=== PATIENT | female | born 1950 | race Caucasian/White ===

== ENCOUNTER 2021-03-25 13:41 | Outpatient (REF) | payer MEDICARE, OTHER, SELFPAY ==
--- NOTE | ~2021-03-25 | MM_ITS ---
EXAMINATION: BONE DENSITOMETRY CLINICAL INDICATION: Encounter for screening for osteoporosis. COMPARISON: Previous BD dated 12/07/2017 and baseline BD dated 11/02/2012. TECHNIQUE: Using a [employer] DXA System (software version: 13.1) manufactured by [employer], dual-energy x-ray absorptiometry was performed of the lumbar spine and left hip. The images are of good technical quality. Summary results are attached. FINDINGS: AP SPINE L1-L4: Current: BMD 1.176 g/cm2, Z-score 1.9, T-score 0.0, normal, 1.6% decrease from previous, 1.7% decrease from baseline (<5% change is not significant). Prior: BMD 1.195 g/cm2. Baseline: BMD 1.196 g/cm2. LEFT FEMUR, NECK: Current: BMD 0.725 g/cm2, Z-score -0.4, T-score -2.3, osteopenia. Prior: BMD 0.706 g/cm2. Baseline: BMD 0.779 g/cm2. LEFT FEMUR, TOTAL: Current: BMD 0.796 g/cm2, Z-score 0.0, T-score -1.7, osteopenia, 2.5% decrease from previous, 7.4% decrease from baseline (<5% change is not significant). Prior: BMD 0.816 g/cm2. Baseline: BMD 0.860 g/cm2. IDENTIFIED RISK FACTORS: Parental hip fracture. Height loss. Menopause. HISTORY OF FRACTURE: None listed. MEDICATIONS: Vitamin D. MM/XR DEXA axial skeleton IMPRESSION: 1. DIAGNOSIS: Osteopenia based on the lowest T-score value of -2.3 in the femoral neck applying World Health Organization criteria. 2. 10-YEAR FRACTURE RISK PREDICTION, FRAX: Major osteoporotic fracture (clinical spine, forearm, hip or shoulder) 19.4%. Hip fracture 6.5%. 3. Treatment Recommendations: NOF guidelines recommend consideration for treatment in postmenopausal women and men age 50 and older presenting with the following: -A hip or vertebral (clinical or morphometric) fracture. -T-score less than or equal to -2.5 at the femoral neck or spine after appropriate evaluation to exclude secondary causes. -Low bone mass at the hip or spine and a 10-year fracture probability by FRAX of greater than or equal to 3% for hip fracture or greater than or equal to 20% for major osteoporotic fracture based on the [place] adapted WHO algorithm. 4. Other Recommendations: All treatment decisions require clinical judgment and consideration of individual patient factors, including patient preferences, comorbidities, previous drug use, risk factors not captured in the FRAX model (e.g. frailty, falls, vitamin D deficiency, increased bone turnover, interval significant decline in bone density) and possible under or overestimation of fracture risk by FRAX. Additional medical evaluation for secondary cause of low bone mineral density may be appropriate. FUTURE SCAN RECOMMENDATION: People with diagnosed cases of osteoporosis or at high risk for fracture should have regular bone mineral density tests. For patients eligible for Medicare, routine testing is allowed once every 2 years. The testing frequency can be increased to one year for patients who have rapidly progressing disease, those who are receiving or discontinuing medical therapy to restore bone mass, or have additional risk factors.
--- NOTE | ~2021-03-25 | MM_ITS ---
EXAMINATION: MM SCREENING DIGITAL BREAST TOMOSYNTHESIS, BILATERAL CLINICAL INFORMATION: Screening. Asymptomatic. The lifetime risk of breast cancer based on the Tyrer-Cuzick Model is 5%. COMPARISON: Mammography: 09/23/2019 and prior exams dating back to 10/24/2009 TECHNIQUE: Digital breast tomosynthesis is performed in both the craniocaudal and mediolateral oblique views along with computer-aided detection (CAD). Synthesized 2D images are generated from the tomosynthesis. FINDINGS: There are scattered areas of fibroglandular density (ACR BI-RADS breast composition Category b). There are no significant masses, abnormal calcifications, or other abnormalities. Parenchymal pattern is similar to prior studies. No developing density. The axilla and skin contours are unremarkable. No significant changes from prior exams. MM/MM tomosynthesis screening BI IMPRESSION: No mammographic evidence of malignancy. ASSESSMENT: BI-RADS 1: Negative RECOMMENDATION: Routine annual mammography screening. This patient's information was entered into a reminder system with a target due date for their next mammogram.
== END 2021-03-25 13:42 | disposition home or self-care (01) ==
LOC: HO.MAMMO 13:41
PROVIDERS: Visit Provider Nurse Practitioner Adult Health
DX: Z12.31 Encounter for screening mammogram for malignant neoplasm of breast (principal); Z13.820 Encounter for screening for osteoporosis; N95.9 Unspecified menopausal and perimenopausal disorder; M85.80 Other specified disorders of bone density and structure, unspecified site; Z78.0 Asymptomatic menopausal state; Z79.899 Other long term (current) drug therapy
CPT/HCPCS: 77063; 77067; 77080

== ENCOUNTER 2022-03-28 09:18 | Outpatient (REF) | payer MEDICARE, OTHER, SELFPAY ==
--- NOTE | ~2022-03-28 | MM_ITS ---
EXAMINATION: MM SCREENING DIGITAL BREAST TOMOSYNTHESIS, BILATERAL CLINICAL INFORMATION: Screening. Asymptomatic. The lifetime risk of breast cancer based on the Tyrer-Cuzick Model is 7%. COMPARISON: Mammography: March 25, 2021 and studies dating back to December 13, 2013 TECHNIQUE: Digital breast tomosynthesis is performed in both the craniocaudal and mediolateral oblique views along with computer-aided detection (CAD). Synthesized 2D images are generated from the tomosynthesis. FINDINGS: There are scattered areas of fibroglandular density (ACR BI-RADS breast composition Category b). There are no significant masses, abnormal calcifications, or other abnormalities. MM/MM tomosynthesis screening BI IMPRESSION: There are no significant changes from prior study. ASSESSMENT: BI-RADS 1: Negative RECOMMENDATION: Routine annual mammography screening. This patient's information was entered into a reminder system with a target due date for their next mammogram.
== END 2022-03-28 09:19 | disposition home or self-care (01) ==
LOC: HO.MAMMO 09:18
PROVIDERS: Visit Provider Nurse Practitioner Primary Care
DX: Z12.31 Encounter for screening mammogram for malignant neoplasm of breast (principal)
CPT/HCPCS: 77063; 77067

== ENCOUNTER 2022-10-14 20:41 | Emergency (ER) | payer MEDICARE, OTHER, SELFPAY ==
[2022-10-14 20:44] VITALS: BP 127/88; PULSE 89; RESP 18; TEMP 36.8; O2SAT 98; BMI 20.3
--- NOTE | 2022-10-14 20:45 | ED.GENADULT ---
HPI - General Adult General Chief complaint: Syncope <TERRI Meehan - Last Filed: 10/14/22 20:53> Stated complaint: fall facial abrasions, flu like symptoms <TERRI Meehan - Last Filed: 10/14/22 20:53> Time Seen by Provider: 10/14/22 21:14 <TERRI Meehan - Last Filed: 10/14/22 20:53> Source: patient <Yasmany Taylor MD - Last Filed: 10/15/22 00:52> Mode of arrival: ambulatory <Yasmany Taylor MD - Last Filed: 10/15/22 00:52> Limitations: no limitations <Yasmany Taylor MD - Last Filed: 10/15/22 00:52> History of Present Illness HPI narrative: Patient with flu-like symptoms for last 3 days coughing nauseated feeling weak was sitting on the stool getting ready for dinner felt lightheaded and passed out was very nauseated before that vomited and had diarrhea when she wokeup vomited once and had watery diarrhea no chest pain or palpitation slight shortness of breath was saturating 98% on arrival no seizure activity noticed patient never had similar episodes in the past patient came with 2 laceration on left forehead and on left upper lip <Yasmany Taylor MD - Last Filed: 10/15/22 00:52> Related Data Home medications: Previous Rx's Medication Instructions Recorded codeine 10 mg-guaifenesin 100 mg/5 10 ml PO Q6H PRN cough #237 mL 10/15/22 mL oral liquid ondansetron 4 mg disintegrating 4 mg PO Q6-8H PRN nausea and 10/15/22 tablet vomiting #7 tabs <TERRI Meehan - Last Filed: 10/14/22 20:53> Allergies/adverse reactions: Allergies Allergy/AdvReac Type Severity Reaction Status Date / Time doxycycline Allergy Intermediate Dizziness Verified 10/14/22 20:45 <TERRI Meehan - Last Filed: 10/14/22 20:53> Review of Systems Review of Systems: Yes all other systems are reviewed and are negative <Yasmany Taylor MD - Last Filed: 10/15/22 00:52> [facility] Social History Social History: Social History Advance Directives: No Advance Directives Information Provided: No <TERRI Meehan - Last Filed: 10/14/22 20:53> Physical Exam ED Vital Signs: Vital Signs - 24 hr 10/14/22 20:44 10/14/22 21:41 10/14/22 21:41 Temperature 98.3 F Pulse Rate 89 101 H 77 Respiratory Rate 18 Blood Pressure 127/88 145/79 H 144/80 H Pulse Oximetry 98 Oxygen Delivery Method Room Air 10/14/22 21:41 10/14/22 22:09 Temperature 97.7 F Pulse Rate 100 82 Respiratory Rate Blood Pressure 151/83 H 137/83 Pulse Oximetry 99 Oxygen Delivery Method Room Air BMI result Body Mass Index 20.3 <TERRI Meehan - Last Filed: 10/14/22 20:53> Vital Signs - 24 hr 10/14/22 20:44 10/14/22 21:41 10/14/22 21:41 Temperature 98.3 F Pulse Rate 89 101 H 77 Respiratory Rate 18 Blood Pressure 127/88 145/79 H 144/80 H Pulse Oximetry 98 Oxygen Delivery Method Room Air 10/14/22 21:41 10/14/22 22:09 Temperature 97.7 F Pulse Rate 100 82 Respiratory Rate Blood Pressure 151/83 H 137/83 Pulse Oximetry 99 Oxygen Delivery Method Room Air BMI result Body Mass Index 20.3 <Yasmany Taylor MD - Last Filed: 10/15/22 00:52> Appearance: Alert. Oriented X3. No acute distress. Eyes: No pallor or icterus ENT: Pharynx normal. Oral Mucosa moist Neck: Normal inspection. Neck supple. CVS: Normal heart rate and rhythm. Pulses normal. Respiratory: No respiratory distress. Equal air entry bilateral, no wheezing/rales/rhonchi Abdomen: Soft and nontender. Bowel sounds are present, no mass palpable, no CVA tenderness Skin: Skin warm and dry. Normal skin color. Normal skin turgor. Extremities: No lower extremity edema. No calf tenderness Neuro: Oriented X 3. No motor deficit. No sensory deficit.No cerebellar signs , cranial nerves II-XII intact <Yasmany Taylor MD - Last Filed: 10/15/22 00:52> [facility] Face images: 1. 2.5 cm superficial laceration 2. 2.2 cm superficial laceration <TERRI Meehan - Last Filed: 10/14/22 20:53> 1. 2.5 cm superficial laceration 2. 2.2 cm superficial laceration <Yasmany Taylor MD - Last Filed: 10/15/22 00:52> Course Course Course Narrative: RME - 72 yo female with history of asthma, GERD who presents to the ER for evaluation of a syncopal event that occurred about 40 minutes ago while she was sitting on a stool in her kitchen. She has not been feeling well for the last 2-3 days with URI symptoms and low grade fevers. PCP instructed her to rest and drink plenty of fluids. She has had a decreased appetite the last 2 days. Today she was sitting on the stool in the kitchen, told her , I really don't feel good, and then her eyes rolled up into her head, she passed out and fell face first on the floor. reports she stopped breathing, he turned her head to the side and she started breathing again. Came to after minute, was disoriented and confused. She then vomited and had diarrhea. VSS on arrival and she appears well. Lip lac noted. Will check basic labs, viral swabs, EKG, orthostatics, CT head/face/neck. <TERRI Meehan - Last Filed: 10/14/22 20:53> Medications Administered Discontinued Medications Generic Name Dose Route Start Last Admin Trade Name Carolann PRN Reason Stop Dose Admin Diphtheria/Tetanus/Acell Pertussis 0.5 ml 10/14/22 20:50 10/14/22 21:39 Diphth,Pertus(Acell),Tet Adult 0.5 Ml Syringe IM 10/14/22 20:51 0.5 ml .ONCE ONE Administration Guaifenesin/Codeine Phosphate 10 ml 10/14/22 23:36 10/14/22 23:44 Guaifen/Codeine Sf 200/20/10ml 10 Ml Liquid PO 10/14/22 23:37 10 ml ONCE ONE Administration Sodium Chloride 1,000 mls @ 999 mls/hr 10/14/22 21:00 10/14/22 21:38 Ns IV 12/23/22 22:00 999 mls/hr .Q1H1M GREYSON Administration Ketorolac Tromethamine 30 mg 10/15/22 00:16 10/15/22 00:36 Ketorolac Tromethamine 30 Mg/Ml Vial IVPUSH 10/15/22 00:17 30 mg ONCE ONE Administration Ondansetron HCl 4 mg 10/14/22 23:28 10/14/22 23:40 Ondansetron Hcl 4 Mg/2 Ml Vial IVPUSH 10/14/22 23:29 4 mg ONCE ONE Administration <TERRI Meehan - Last Filed: 10/14/22 20:53> Medications Administered Discontinued Medications Generic Name Dose Route Start Last Admin Trade Name Freq PRN Reason Stop Dose Admin Diphtheria/Tetanus/Acell Pertussis 0.5 ml 10/14/22 20:50 10/14/22 21:39 Diphth,Pertus(Acell),Tet Adult 0.5 Ml Syringe IM 10/14/22 20:51 0.5 ml .ONCE ONE Administration Guaifenesin/Codeine Phosphate 10 ml 10/14/22 23:36 10/14/22 23:44 Guaifen/Codeine Sf 200/20/10ml 10 Ml Liquid PO 10/14/22 23:37 10 ml ONCE ONE Administration Sodium Chloride 1,000 mls @ 999 mls/hr 10/14/22 21:00 10/14/22 21:38 Ns IV 10/14/22 22:00 999 mls/hr .Q1H1M GREYSON Administration Ketorolac Tromethamine 30 mg 10/15/22 00:16 10/15/22 00:36 Ketorolac Tromethamine 30 Mg/Ml Vial IVPUSH 10/15/22 00:17 30 mg ONCE ONE Administration Ondansetron HCl 4 mg 10/14/22 23:28 10/14/22 23:40 Ondansetron Hcl 4 Mg/2 Ml Vial IVPUSH 10/14/22 23:29 4 mg ONCE ONE Administration <Yasmany Taylor MD - Last Filed: 10/15/22 00:52> Procedures Laceration Laceration 1: Site: face (Left forehead) <Yasmany Taylor MD - Last Filed: 10/15/22 00:52> Side (If applicable): left <Yasmany Taylor MD - Last Filed: 10/15/22 00:52> Size (cm): 2.5 <Yasmany Taylor MD - Last Filed: 10/15/22 00:52> Description: linear <Yasmany Taylor MD - Last Filed: 10/15/22 00:52> Depth: simple, single layer <Yasmany Taylor MD - Last Filed: 10/15/22 00:52> Local Anesthetic: lidocaine 1% <Yasmany Taylor MD - Last Filed: 10/15/22 00:52> Amount of anesthesia used (mL): 1 <Yasmany Taylor MD - Last Filed: 10/15/22 00:52> Skin layer closed with: nylon <Yasmany Taylor MD - Last Filed: 10/15/22 00:52> Size (cm): 6-0 <Yasmany Taylor MD - Last Filed: 10/15/22 00:52> Number of sutures: 5 <Yasmany Taylor MD - Last Filed: 10/15/22 00:52> Technique: simple, interrupted <Yasmany Taylor MD - Last Filed: 10/15/22 00:52> Subcutaneous layer closed with: other <Yasmany Taylor MD - Last Filed: 10/15/22 00:52> Laceration 2: Site: lip <Yasmany Taylor MD - Last Filed: 10/15/22 00:52> Side (If applicable): left <Yasmany Taylor MD - Last Filed: 10/15/22 00:52> Size (cm): 2.2 <Yasmany Taylor MD - Last Filed: 10/15/22 00:52> Description: linear <Yasmany Taylor MD - Last Filed: 10/15/22 00:52> Depth: simple, single layer <Yasmany Taylor MD - Last Filed: 10/15/22 00:52> Local Anesthetic: lidocaine 1% <Yasmany Taylor MD - Last Filed: 10/15/22 00:52> Amount of anesthesia used (mL): 1 <Yasmany Taylor MD - Last Filed: 10/15/22 00:52> Skin layer closed with: nylon <Yasmany Taylor MD - Last Filed: 10/15/22 00:52> Size (cm): 6-0 <Yasmany Taylor MD - Last Filed: 10/15/22 00:52> Number of sutures: 5 <Yasmany Taylor MD - Last Filed: 10/15/22 00:52> Technique: simple, interrupted <Yasmany Taylor MD - Last Filed: 10/15/22 00:52> Medical Decision Making Medical Decision Making [facility] Narrative: Patient with influenza a, with poor oral intake with vasovagal syncope episode workup is negative feeling much better after IV hydration chest x-ray negative for infiltrate normal orthostatics CT head negative will discharge patient home patient ambulated in the ER and had p.o. fluids <Yasmany Taylor MD - Last Filed: 10/15/22 00:52> Lab Data [facility] Lab Attestation statement: I reviewed the patient's lab results. <Yasmany Taylor MD - Last Filed: 10/15/22 00:52> Result Diagrams: : 10/14/22 21:33 10/14/22 21:33 <TERRI Meehan - Last Filed: 10/14/22 20:53> Labs: Lab Results 10/14/22 10/14/22 10/14/22 Range/Units 21:27 21:33 21:33 WBC 4.6 L (4.8-10.8) X10*3/uL RBC 4.08 L (4.20-5.50) X10*6/uL Hgb 13.0 (12.0-16.0) g/dl Hct 39.1 (37.0-47.0) % MCV 95.8 (80.0-98.0) fL MCH 31.9 (27.0-33.0) pg MCHC 33.2 (31.0-35.0) g/dl RDW 13.2 (11.0-16.0) % Plt Count 217 (160-400) X10*3/uL MPV 11.1 (9.4-12.3) fL Immature Gran % (Auto) 0.2 (0.0-0.4) % Neut % (Auto) 74.3 H (45-73) % Lymph % (Auto) 12.7 L (20-40) % [place] % (Auto) 12.4 H (2-11) % Eos % (Auto) 0.2 (0-4) % Baso % (Auto) 0.2 (0-2) % Lymph # (Auto) 0.6 L (1.2-4.9) X10*3/uL [place] # (Auto) 0.6 (0.1-1.2) X10*3/uL Eos # (Auto) 0.0 (0.0-0.4) X10*3/uL Baso # (Auto) 0.0 (0.0-0.2) X10*3/uL Abs Immat Gran (auto) 0.01 (0.00-0.03) X10*3/uL Absolute Neuts (auto) 3.4 (2.0-8.3) x10*3/uL Absolute Nucleated RBC 0.000 (0.0-0.012) X10*3/uL Nucleated RBC % (auto) 0.0 (0.0-0.2) /100WBC PT (10.0-13.1) SEC INR (0.9-1.1) APTT (26.0-36.4) SEC Sodium 136 (135-145) mmol/L Potassium 4.0 (3.3-5.1) mmol/L Chloride 99 (96-108) mmol/L Carbon Dioxide 27 (22-29) mmol/L Anion Gap 14 (12-20) BUN 15 (9-16) mg/dL Creatinine 0.79 (0.5-1.4) mg/dL Estim Creat Clear Calc 58.1 Estimated GFR > 60 Random Glucose 123 H (60-115) mg/dL Calcium 9.3 (8.4-10.2) mg/dL Magnesium 1.9 (1.6-2.6) mg/dL Total Bilirubin 0.3 (0.0-1.0) mg/dL Direct Bilirubin < 0.2 (0.0-0.5) mg/dL AST 34 H (5-31) U/L ALT 23 (0-31) U/L Alkaline Phosphatase 56 (39-117) U/L Troponin I High Sens (<3.5-17.0) ng/L Total Protein 7.6 (6.5-8.0) g/dL Albumin 4.6 (3.5-5.0) g/dL Urine Color Urine Appearance Urine pH (5.0-9.0) Ur Specific [place] (1.005-1.025) Urine Protein (Neg-Trace) mg/dL Urine Glucose (UA) (Negative) mg/dL Urine Ketones (Negative) mg/dL Urine Blood (Negative) Urine Nitrite (Negative) Ur Leukocyte Esterase (Negative) Urine RBC (0-2) /HPF Urine WBC (0-5) /HPF Ur Squamous Epith Cells (0-2) /HPF Urine Bacteria (None Seen) Hyaline Casts (0-2) /LPF Influenza Type A (PCR) POSITIVE A (Negative) Influenza Type B (PCR) NEGATIVE (Negative) RSV RNA Qual (PCR) NEGATIVE (Negative) SARS-CoV-2 RNA (RT-PCR) NEGATIVE (Negative) 10/14/22 10/14/22 10/14/22 Range/Units 21:33 21:33 23:05 WBC (4.8-10.8) X10*3/uL RBC (4.20-5.50) X10*6/uL Hgb (12.0-16.0) g/dl Hct (37.0-47.0) % MCV (80.0-98.0) fL MCH (27.0-33.0) pg MCHC (31.0-35.0) g/dl RDW (11.0-16.0) % Plt Count (160-400) X10*3/uL MPV (9.4-12.3) fL Immature Gran % (Auto) (0.0-0.4) % Neut % (Auto) (45-73) % Lymph % (Auto) (20-40) % [place] % (Auto) (2-11) % Eos % (Auto) (0-4) % Baso % (Auto) (0-2) % Lymph # (Auto) (1.2-4.9) X10*3/uL [place] # (Auto) (0.1-1.2) X10*3/uL Eos # (Auto) (0.0-0.4) X10*3/uL Baso # (Auto) (0.0-0.2) X10*3/uL Abs Immat Gran (auto) (0.00-0.03) X10*3/uL Absolute Neuts (auto) (2.0-8.3) x10*3/uL Absolute Nucleated RBC (0.0-0.012) X10*3/uL Nucleated RBC % (auto) (0.0-0.2) /100WBC PT 12.0 (10.0-13.1) SEC INR 1.0 (0.9-1.1) APTT 31.0 (26.0-36.4) SEC Sodium (135-145) mmol/L Potassium (3.3-5.1) mmol/L Chloride (96-108) mmol/L Carbon Dioxide (22-29) mmol/L Anion Gap (12-20) BUN (9-16) mg/dL Creatinine (0.5-1.4) mg/dL Estim Creat Clear Calc Estimated GFR Random Glucose (60-115) mg/dL Calcium (8.4-10.2) mg/dL Magnesium (1.6-2.6) mg/dL Total Bilirubin (0.0-1.0) mg/dL Direct Bilirubin (0.0-0.5) mg/dL AST (5-31) U/L ALT (0-31) U/L Alkaline Phosphatase (39-117) U/L Troponin I High Sens 5.4 (<3.5-17.0) ng/L Total Protein (6.5-8.0) g/dL Albumin (3.5-5.0) g/dL Urine Color Yellow Urine Appearance Clear Urine pH 6.0 (5.0-9.0) Ur Specific [place] 1.015 (1.005-1.025) Urine Protein Trace (Neg-Trace) mg/dL Urine Glucose (UA) Negative (Negative) mg/dL Urine Ketones 15 (Negative) mg/dL Urine Blood Trace H (Negative) Urine Nitrite Negative (Negative) Ur Leukocyte Esterase Trace H (Negative) Urine RBC 3-5 H (0-2) /HPF Urine WBC 0-5 (0-5) /HPF Ur Squamous Epith Cells 0-2 (0-2) /HPF Urine Bacteria None Seen (None Seen) Hyaline Casts 3-5 (0-2) /LPF Influenza Type A (PCR) (Negative) Influenza Type B (PCR) (Negative) RSV RNA Qual (PCR) (Negative) SARS-CoV-2 RNA (RT-PCR) (Negative) <TERRI Meehan - Last Filed: 10/14/22 20:53> Lab Results 10/14/22 10/14/22 10/14/22 Range/Units 21:27 21:33 21:33 WBC 4.6 L (4.8-10.8) X10*3/uL RBC 4.08 L (4.20-5.50) X10*6/uL Hgb 13.0 (12.0-16.0) g/dl Hct 39.1 (37.0-47.0) % MCV 95.8 (80.0-98.0) fL MCH 31.9 (27.0-33.0) pg MCHC 33.2 (31.0-35.0) g/dl RDW 13.2 (11.0-16.0) % Plt Count 217 (160-400) X10*3/uL MPV 11.1 (9.4-12.3) fL Immature Gran % (Auto) 0.2 (0.0-0.4) % Neut % (Auto) 74.3 H (45-73) % Lymph % (Auto) 12.7 L (20-40) % [place] % (Auto) 12.4 H (2-11) % Eos % (Auto) 0.2 (0-4) % Baso % (Auto) 0.2 (0-2) % Lymph # (Auto) 0.6 L (1.2-4.9) X10*3/uL [place] # (Auto) 0.6 (0.1-1.2) X10*3/uL Eos # (Auto) 0.0 (0.0-0.4) X10*3/uL Baso # (Auto) 0.0 (0.0-0.2) X10*3/uL Abs Immat Gran (auto) 0.01 (0.00-0.03) X10*3/uL Absolute Neuts (auto) 3.4 (2.0-8.3) x10*3/uL Absolute Nucleated RBC 0.000 (0.0-0.012) X10*3/uL Nucleated RBC % (auto) 0.0 (0.0-0.2) /100WBC PT (10.0-13.1) SEC INR (0.9-1.1) APTT (26.0-36.4) SEC Sodium 136 (135-145) mmol/L Potassium 4.0 (3.3-5.1) mmol/L Chloride 99 (96-108) mmol/L Carbon Dioxide 27 (22-29) mmol/L Anion Gap 14 (12-20) BUN 15 (9-16) mg/dL Creatinine 0.79 (0.5-1.4) mg/dL Estim Creat Clear Calc 58.1 Estimated GFR > 60 Random Glucose 123 H (60-115) mg/dL Calcium 9.3 (8.4-10.2) mg/dL Magnesium 1.9 (1.6-2.6) mg/dL Total Bilirubin 0.3 (0.0-1.0) mg/dL Direct Bilirubin < 0.2 (0.0-0.5) mg/dL AST 34 H (5-31) U/L ALT 23 (0-31) U/L Alkaline Phosphatase 56 (39-117) U/L Troponin I High Sens (<3.5-17.0) ng/L Total Protein 7.6 (6.5-8.0) g/dL Albumin 4.6 (3.5-5.0) g/dL Urine Color Urine Appearance Urine pH (5.0-9.0) Ur Specific [place] (1.005-1.025) Urine Protein (Neg-Trace) mg/dL Urine Glucose (UA) (Negative) mg/dL Urine Ketones (Negative) mg/dL Urine Blood (Negative) Urine Nitrite (Negative) Ur Leukocyte Esterase (Negative) Urine RBC (0-2) /HPF Urine WBC (0-5) /HPF Ur Squamous Epith Cells (0-2) /HPF Urine Bacteria (None Seen) Hyaline Casts (0-2) /LPF Influenza Type A (PCR) POSITIVE A (Negative) Influenza Type B (PCR) NEGATIVE (Negative) RSV RNA Qual (PCR) NEGATIVE (Negative) SARS-CoV-2 RNA (RT-PCR) NEGATIVE (Negative) 10/14/22 10/14/22 10/14/22 Range/Units 21:33 21:33 23:05 WBC (4.8-10.8) X10*3/uL RBC (4.20-5.50) X10*6/uL Hgb (12.0-16.0) g/dl Hct (37.0-47.0) % MCV (80.0-98.0) fL MCH (27.0-33.0) pg MCHC (31.0-35.0) g/dl RDW (11.0-16.0) % Plt Count (160-400) X10*3/uL MPV (9.4-12.3) fL Immature Gran % (Auto) (0.0-0.4) % Neut % (Auto) (45-73) % Lymph % (Auto) (20-40) % [place] % (Auto) (2-11) % Eos % (Auto) (0-4) % Baso % (Auto) (0-2) % Lymph # (Auto) (1.2-4.9) X10*3/uL [place] # (Auto) (0.1-1.2) X10*3/uL Eos # (Auto) (0.0-0.4) X10*3/uL Baso # (Auto) (0.0-0.2) X10*3/uL Abs Immat Gran (auto) (0.00-0.03) X10*3/uL Absolute Neuts (auto) (2.0-8.3) x10*3/uL Absolute Nucleated RBC (0.0-0.012) X10*3/uL Nucleated RBC % (auto) (0.0-0.2) /100WBC PT 12.0 (10.0-13.1) SEC INR 1.0 (0.9-1.1) APTT 31.0 (26.0-36.4) SEC Sodium (135-145) mmol/L Potassium (3.3-5.1) mmol/L Chloride (96-108) mmol/L Carbon Dioxide (22-29) mmol/L Anion Gap (12-20) BUN (9-16) mg/dL Creatinine (0.5-1.4) mg/dL Estim Creat Clear Calc Estimated GFR Random Glucose (60-115) mg/dL Calcium (8.4-10.2) mg/dL Magnesium (1.6-2.6) mg/dL Total Bilirubin (0.0-1.0) mg/dL Direct Bilirubin (0.0-0.5) mg/dL AST (5-31) U/L ALT (0-31) U/L Alkaline Phosphatase (39-117) U/L Troponin I High Sens 5.4 (<3.5-17.0) ng/L Total Protein (6.5-8.0) g/dL Albumin (3.5-5.0) g/dL Urine Color Yellow Urine Appearance Clear Urine pH 6.0 (5.0-9.0) Ur Specific [place] 1.015 (1.005-1.025) Urine Protein Trace (Neg-Trace) mg/dL Urine Glucose (UA) Negative (Negative) mg/dL Urine Ketones 15 (Negative) mg/dL Urine Blood Trace H (Negative) Urine Nitrite Negative (Negative) Ur Leukocyte Esterase Trace H (Negative) Urine RBC 3-5 H (0-2) /HPF Urine WBC 0-5 (0-5) /HPF Ur Squamous Epith Cells 0-2 (0-2) /HPF Urine Bacteria None Seen (None Seen) Hyaline Casts 3-5 (0-2) /LPF Influenza Type A (PCR) (Negative) Influenza Type B (PCR) (Negative) RSV RNA Qual (PCR) (Negative) SARS-CoV-2 RNA (RT-PCR) (Negative) <Yasmany Taylor MD - Last Filed: 10/15/22 00:52> Independent Interpretation I performed an independent interpretation of an: EKG <Yasmany Taylor MD - Last Filed: 10/15/22 00:52> Interpretation: Normal sinus rhythm heart rate 80 beats per minute normal interval normal axis no acute ST changes no ischemia impression normal EKG <Yasmany Taylor MD - Last Filed: 10/15/22 00:52> Discharge Plan Discharge Clinical Impression: Vasovagal syncope, Influenza A, Face lacerations <TERRI Meehan - Last Filed: 10/14/22 20:53> Patient Disposition: Home, Self-Care <TERRI Meehan - Last Filed: 10/14/22 20:53> Instructions: Laceration (ED), Influenza (ED), Near Syncope (ED) <TERRI Meehan - Last Filed: 10/14/22 20:53> Additional Instructions: Drink plenty of fluids Eat well, social distancing Medicine for nausea and cough Report to the ER if not better Suture removal in 7-10 days <TERRI Meehan - Last Filed: 10/14/22 20:53> Prescriptions: New ondansetron 4 mg tablet,disintegrating 4 mg PO Q6-8H PRN (Reason: nausea and vomiting) Qty: 7 0RF codeine-guaifenesin 10-100 mg/5 mL liquid 10 ml PO Q6H PRN (Reason: cough) Qty: 237 0RF <TERRI Meehan - Last Filed: 10/14/22 20:53>
--- NOTE | 2022-10-14 20:50 | ECG_ITS ---
Test Reason : FALL Blood Pressure : / mmHG Vent. Rate : 080 BPM Atrial Rate : 080 BPM P-R Int : 168 ms QRS Dur : 090 ms QT Int : 384 ms P-R-T Axes : 064 042 052 degrees QTc Int : 442 ms Normal sinus rhythm Normal ECG No previous ECGs available Referred By: Jaqueline Bentley Electronically Signed By:Jonny Dasilva
[2022-10-14 21:40] LABS: MANUAL DIFF FLAG NO
[2022-10-14 21:41] VITALS: BP 144/80; BP 145/79; BP 151/83; PULSE 100; PULSE 101; PULSE 77
[2022-10-14 21:42] LABS: Basophils Percent Auto 0.2 % (0-2); Eosinophils Percent Auto 0.2 % (0-4); Hematocrit 39.1 % (37.0-47.0); Imm Gran Abs Auto 0.01 X10*3/uL (0.00-0.03); Imm Gran Pct Auto 0.2 % (0.0-0.4); Lymphocytes Absolute Auto 0.6 X10*3/uL (1.2-4.9); Lymphocytes Percent Auto 12.7 % (20-40); Mean Corpuscular HGB Conc 33.2 g/dl (31.0-35.0); Mean Corpuscular Hemoglobin 31.9 pg (27.0-33.0); Mean Corpuscular Volume 95.8 fL (80.0-98.0); Mean Platelet Volume 11.1 fL (9.4-12.3); Monocytes Absolute Auto 0.6 X10*3/uL (0.1-1.2); Monocytes Percent Auto 12.4 % (2-11); Neutrophils Absolute Auto 3.4 x10*3/uL (2.0-8.3); Neutrophils Percent Auto 74.3 % (45-73); Platelet Count 217 X10*3/uL (160-400); Red Blood Count 4.08 X10*6/uL (4.20-5.50); Red Cell Distribution Width 13.2 % (11.0-16.0); White Blood Count 4.6 X10*3/uL (4.8-10.8)
[2022-10-14 21:57] LABS: Alanine Aminotransferase 23 U/L (0-31); Albumin Level 4.6 g/dL (3.5-5.0); Alkaline Phosphatase 56 U/L (39-117); Anion Gap 14 (12-20); Aspartate Amino Transferase 34 U/L (5-31); Bilirubin Direct < 0.2 mg/dL (0.0-0.5); Bilirubin Total 0.3 mg/dL (0.0-1.0); Blood Urea Nitrogen 15 mg/dL (9-16); Calcium 9.3 mg/dL (8.4-10.2); Carbon Dioxide 27 mmol/L (22-29); Chloride 99 mmol/L (96-108); Creatinine Clr Calc Pharmacy 58.1; Estimated Glomerular Filt Rate > 60; Glucose Random 123 mg/dL (60-115); Magnesium 1.9 mg/dL (1.6-2.6); Sodium 136 mmol/L (135-145); Total Protein 7.6 g/dL (6.5-8.0)
[2022-10-14 22:00] LABS: Troponin-I High Sensitivity 5.4 ng/L (<3.5-17.0)
[2022-10-14 22:09] VITALS: BP 137/83; PULSE 82; TEMP 36.5; O2SAT 99
[2022-10-14 22:20] LABS: Influenza A PCR POSITIVE (Negative); Influenza B PCR NEGATIVE (Negative); Resp Syncy Virus RNA Qual PCR NEGATIVE (Negative); SARS COV2 PCR INHOUSE NEGATIVE (Negative)
[2022-10-14 23:12] LABS: Appearance Urine Clear; Color Urine Yellow; Glucose Urine UA Negative (Negative); Leukocyte Esterase Urine Trace (Negative); Nitrite Urine Negative (Negative); Specific Gravity - Urine 1.015 (1.005-1.025); UMIC TRIGGER UACC YES; Urine Blood Trace (Negative); Urine Ketones 15 mg/dL (Negative); Urine Protein Trace mg/dL (Neg-Trace)
[2022-10-14 23:21] LABS: Bacteria Urine None Seen (None Seen); Squamous Epithelial Cell Urine 0-2 /HPF (0-2); WBC Urine 0-5 /HPF (0-5)
--- NOTE | 2022-10-15 00:48 | PC.NURSE ---
pt a&o, no sob or chest pain. reviewed discharge instruction with pt. pt verbalized understanding.
== END 2022-10-15 01:04 | disposition home or self-care (01) ==
PROVIDERS: Physician Assistant; Emergency Provider Internal Medicine; PCP Nurse Practitioner Primary Care
DX: S00.81XA Abrasion of other part of head, initial encounter (principal); J10.1 Influenza due to other identified influenza virus with other respiratory manifestations; R55 Syncope and collapse; R51.9 Headache, unspecified; M54.2 Cervicalgia; R05.9 Cough, unspecified; W01.0XXA Fall on same level from slipping, tripping and stumbling without subsequent striking against object, initial encounter; Y93.9 Activity, unspecified; Y92.9 Unspecified place or not applicable; Y99.9 Unspecified external cause status; Z20.822 Contact with and (suspected) exposure to COVID-19; Z79.899 Other long term (current) drug therapy; Z23 Encounter for immunization
CPT/HCPCS: 0241U; 12013; 36415; 70450; 70486; 71045; 72125; 80048; 80076; 81001; 83735; 84484; 85025; 85610; 85730; 90471; 90715; 93005; 96361; 96374; 96375; 99284; J1885; J2405

== ENCOUNTER 2022-10-16 11:17 | Observation (INO) | payer MEDICARE, OTHER, SELFPAY ==
[2022-10-16] VITALS (7 sets, daily range): BP systolic 133–153; BP diastolic 70–91; PULSE 62–74; RESP 12–20; TEMP 36.6–36.7; O2SAT 97–98; BMI 20.1
--- NOTE | 2022-10-16 11:55 | ED.GENADULT ---
HPI - General Adult General Chief complaint: General Medical Stated complaint: dizzy, vomiting Time Seen by Provider: 10/16/22 11:49 Source: patient Mode of arrival: ambulatory Limitations: no limitations History of Present Illness HPI narrative: 72-year-old female with a history of GERD, asthma presents with reports of episode of feeling lightheaded and dizzy around 08:00 this morning. Patient reports since Monday she has had flu-like symptoms. On Monday she was seen here in the emergency room after having a syncopal episode with vomiting and diarrhea associated. Patient had a CT scan of the head, facial bones, C-spine which were all negative. She was discharged home with diagnosis of influenza a and vasovagal syncope. Patient reports yesterday she overall was feeling better but still having some malaise and decreased intake. Today she got up around 08:00 sitting on her couch eating and drinking when she started to feel very lightheaded like she was going to pass out and diaphoretic. Patient reports episode of vomiting. She did not pass out completely. She denies any associated palpitations, shortness of breath or chest pain with these episode. It resolved after several minutes. Patient reports since then she has had no additional episodes. She denies any continued vomiting or diarrhea. She has been trying to drink more water but has had decreased oral intake. No abdominal pain. She has had a cough which is described as congested and wet with no associated shortness of breath, leg swelling or leg pain. She has had some intermittent chills and tactile temps but has not checked her temperature for several days. Patient reports episode on Monday felt different. Prior to that episode she had no preceding symptoms. She has no memory of the event. was concerned that after the episode she had some confusion for several minutes but this seemed to resolve. This episode patient felt quite symptomatic very lightheaded, diaphoretic and vomited. There was no loss of consciousness this time and no confusion or additional symptoms after the episode resolved. Related Data Home Medications Medication Instructions Recorded Confirmed albuterol sulfate 90 mcg/actuation 2 puff inhalation Q6H 10/16/22 10/16/22 aerosol inhaler estradiol 0.01% (0.1 mg/gram) 1 g vaginal 2XW 10/16/22 10/16/22 vaginal cream montelukast 10 mg tablet 1 tab PO DAILY 10/16/22 10/16/22 omeprazole 20 mg capsule,delayed 1 cap PO DAILY 10/16/22 10/16/22 release Previous Rx's Medication Instructions Recorded codeine 10 mg-guaifenesin 100 mg/5 10 ml PO Q6H PRN cough #237 mL 10/15/22 mL oral liquid Allergies Allergy/AdvReac Type Severity Reaction Status Date / Time doxycycline Allergy Intermediate Dizziness Verified 10/14/22 20:45 Review of Systems Review of Systems: Yes all other systems are reviewed and are negative Constitutional: Constitutional: Reports no additional constitutional complaints, Denies body ache(s), Reports chills, Reports fever(s), Denies headache(s), Reports malaise, Reports poor appetite and Denies weakness Eyes: Eyes: Reports no additional eye complaints and Denies change in vision ENT: Reports system reviewed and no additional complaints, except as documented, Reports dizziness, Denies headache(s), Denies nasal congestion, Denies nasal discharge and Denies neck pain Cardiovascular: Cardiovascular: Reports no additional cardiovascular complaints, Denies chest pain, Denies leg edema and Denies dyspnea Respiratory: Respiratory: Reports no additional respiratory complaints, Reports cough and Denies dyspnea Gastrointestinal: Gastrointestinal: Reports no additional gastrointestinal complaints, Denies abdominal pain, Denies diarrhea, Reports nausea and Reports vomiting Genitourinary: Genitourinary: Reports no additional female genitourinary complaints and Denies urinary incontinence Musculoskeletal: Musculoskeletal: Reports no additional musculoskeletal complaints, Denies back pain, Denies arthralgias, Denies joint swelling, Denies neck pain, Denies numbness and Denies tingling Integumentary/Breasts: Skin/Breast: Reports system reviewed and no additional complaints, except as docu and Denies rash Neurologic: Reports system reviewed and no additional complaints, except as documented, Reports dizziness, Denies headache(s), Denies numbness, Denies tingling and Denies weakness [facility] Past Medical History Attestation statement: The following information was validated with the patient. Source: old records reviewed and nursing notes reviewed Medical History (Updated 10/16/22 @ 15:51 by TERRI Bean) GERD (gastroesophageal reflux disease) Mild intermittent asthma Family History Family History (Updated 10/16/22 @ 15:50 by TERRI Bean) Mother Alzheimer disease Sister Alzheimer disease Father Atherosclerosis Social History Social History (Updated 10/16/22 @ 15:50 by TERRI Bean) Alcohol intake: current Alcohol intake frequency: 0-2 drinks per day Smoked in Last 30 Days: No Use of substances other than those prescribed or required for medical reasons: No Advance Directives: No Physical Exam ED Vital Signs: Vital Signs - 24 hr 10/16/22 11:22 10/16/22 12:46 10/16/22 12:48 Temperature 97.9 F Pulse Rate 62 67 63 Respiratory Rate 18 16 Blood Pressure 139/72 133/79 135/70 Pulse Oximetry 98 97 Oxygen Delivery Method Room Air Room Air 10/16/22 12:49 10/16/22 12:51 Temperature Pulse Rate 71 74 Respiratory Rate Blood Pressure 143/74 H 142/84 H Pulse Oximetry Oxygen Delivery Method BMI result Body Mass Index 20.1 Const General: cooperative, healthy appearing, comfortable and no acute distress Orientation/consciousness: patient oriented x3 Limitations: no limitations HENMT Head: Yes normal to inspection Head images: 1. Sutures present 2. Sutures present Ears: hearing grossly normal bilaterally and TM's normal bilaterally General nose exam: Normal external nose present Mouth: Normal oral and palatal mucosa present Throat: Yes posterior oropharynx normal, Yes tonsils normal and Yes uvula midline Eyes General: appearance normal, both eyes and all related structures Pupils: Equal, round and reactive pupils present Neck Neck: Yes normal visual inspection Chest Chest palpation & inspection: normal inspection of the chest Resp Effort & Inspection: normal respiratory effort Auscultation: clear to auscultation bilaterally Cardio Rate: regular rate Rhythm: regular rhythm Peripheral pulses: Peripheral pulses 2+ throughout GI Inspection: Yes normal to inspection Palpation (GI): Soft to palpation and nontender General: Yes no CVA tenderness Back/Spine/Pelvis Back: no CVA tenderness Thoracic/Lumbar Spine: thoracic and lumbar spine normal to inspection Skin General skin exam: no rashes or lesions noted Neuro General: patient oriented x3 Cranial nerves: Yes CN's II-XII intact bilaterally, Yes Equal, round and reactive pupils present, Yes Bilaterally intact EOM present, Yes Nystagmus not present and Yes Normal facial strength present Cognition (Neuro): normal cognition Gait exam (Neuro): Normal gait present Motor exam (neuro): 5/5 motor strength present throughout Sensory Exam: Normal double simultaneous stimulation for sensation Coordination: [id number] test normal Extrem General: Yes normal to inspection, Yes no pedal edema and Yes no calf tenderness Course Course Course Narrative: Negative orthos. Initial labs including troponin are negative. EKG shows no ischemic changes. Initial UA is contaminated. Will repeat urinalysis. Patient with syncope at rest from unknown cause. No previous history of same. Patient should be admitted for further workup and evaluation. Medications Administered Generic Name Dose Route Start Last Admin Trade Name Freq PRN Reason Stop Dose Admin Ibuprofen 600 mg 10/16/22 15:43 10/16/22 15:48 Ibuprofen 600 Mg Tablet PO 600 mg Q6H PRN Administration mild pain, fever Medical Decision Making Medical Decision Making MDM Narrative: 72-year-old female here with episode of dizziness with associated diaphoresis and vomiting which occurred while at rest described as feeling lightheaded like she was going to pass out at 08:00 this morning. Of note, patient currently flu positive and seen here Monday after a fall with diagnosis of vasovagal syncope after a episode occurred while at rest witnessed by the described as no preceding symptoms with sudden loss of consciousness with fall to the ground and period of confusion after. Normal neuro exam now Vitals are stable Will check labs, EKG, orthostatics, chest x-ray. Patient placed on registered nurse cardiac for observation while in the ER. Differential Diagnosis Differential Diagnoses: The differential diagnosis associated with the presentation includes Arrhythmia, orthostatic hypotension, dehydration, PE (no recent surgery, no recent travel, no clinical findings concerning for DVT, no hypoxia or tachypnea or tachycardia) Admission/Observation Consideration of admission/observation: Escalation of care including admission/observation considered 72 y F with syncope at rest from unknown source. Should be admitted for further w/u Consult Healthcare Provider Management of the patient was discussed with: Hospitalist Spoke to Dr Schilling (medicine service) who agrees with admission Lab Data MDM Lab Attestation statement: I reviewed the patient's lab results. Result Diagrams: 10/16/22 13:04 10/16/22 13:04 Labs: Lab Results 10/16/22 10/16/22 10/16/22 Range/Units 13:04 13:04 13:04 WBC 4.9 (4.8-10.8) X10*3/uL RBC 3.85 L (4.20-5.50) X10*6/uL Hgb 12.2 (12.0-16.0) g/dl Hct 37.3 (37.0-47.0) % MCV 96.9 (80.0-98.0) fL MCH 31.7 (27.0-33.0) pg MCHC 32.7 (31.0-35.0) g/dl RDW 13.0 (11.0-16.0) % Plt Count 221 (160-400) X10*3/uL MPV 11.4 (9.4-12.3) fL Immature Gran % (Auto) 0.4 (0.0-0.4) % Neut % (Auto) 75.7 H (45-73) % Lymph % (Auto) 13.0 L (20-40) % [place] % (Auto) 10.3 (2-11) % Eos % (Auto) 0.4 (0-4) % Baso % (Auto) 0.2 (0-2) % Lymph # (Auto) 0.6 L (1.2-4.9) X10*3/uL [place] # (Auto) 0.5 (0.1-1.2) X10*3/uL Eos # (Auto) 0.0 (0.0-0.4) X10*3/uL Baso # (Auto) 0.0 (0.0-0.2) X10*3/uL Abs Immat Gran (auto) 0.02 (0.00-0.03) X10*3/uL Absolute Neuts (auto) 3.7 (2.0-8.3) x10*3/uL Absolute Nucleated RBC 0.000 (0.0-0.012) X10*3/uL Nucleated RBC % (auto) 0.0 (0.0-0.2) /100WBC PT 11.9 (10.0-13.1) SEC INR 1.0 (0.9-1.1) Sodium 138 (135-145) mmol/L Potassium 4.3 (3.3-5.1) mmol/L Chloride 102 (96-108) mmol/L Carbon Dioxide 29 (22-29) mmol/L Anion Gap 11 L (12-20) BUN 16 (9-16) mg/dL Creatinine 0.75 (0.5-1.4) mg/dL Estim Creat Clear Calc 60.6 Estimated GFR > 60 Random Glucose 142 H (60-115) mg/dL Calcium 9.1 (8.4-10.2) mg/dL Magnesium 1.8 (1.6-2.6) mg/dL Total Bilirubin 0.3 (0.0-1.0) mg/dL Direct Bilirubin < 0.2 (0.0-0.5) mg/dL AST 31 (5-31) U/L ALT 22 (0-31) U/L Alkaline Phosphatase 52 (39-117) U/L Troponin I High Sens (<3.5-17.0) ng/L Total Protein 6.7 (6.5-8.0) g/dL Albumin 4.1 (3.5-5.0) g/dL Urine Color Urine Appearance Urine pH (5.0-9.0) Ur Specific [place] (1.005-1.025) Urine Protein (Neg-Trace) mg/dL Urine Glucose (UA) (Negative) mg/dL Urine Ketones (Negative) mg/dL Urine Blood (Negative) Urine Nitrite (Negative) Ur Leukocyte Esterase (Negative) Urine RBC (0-2) /HPF Urine WBC (0-5) /HPF Ur Squamous Epith Cells (0-2) /HPF Urine Bacteria (None Seen) Hyaline Casts (0-2) /LPF COVID-19 (CAROLYN) (Negative) COVID-19 Clin Com 10/16/22 10/16/22 10/16/22 Range/Units 13:04 13:14 14:26 WBC (4.8-10.8) X10*3/uL RBC (4.20-5.50) X10*6/uL Hgb (12.0-16.0) g/dl Hct (37.0-47.0) % MCV (80.0-98.0) fL MCH (27.0-33.0) pg MCHC (31.0-35.0) g/dl RDW (11.0-16.0) % Plt Count (160-400) X10*3/uL MPV (9.4-12.3) fL Immature Gran % (Auto) (0.0-0.4) % Neut % (Auto) (45-73) % Lymph % (Auto) (20-40) % [place] % (Auto) (2-11) % Eos % (Auto) (0-4) % Baso % (Auto) (0-2) % Lymph # (Auto) (1.2-4.9) X10*3/uL [place] # (Auto) (0.1-1.2) X10*3/uL Eos # (Auto) (0.0-0.4) X10*3/uL Baso # (Auto) (0.0-0.2) X10*3/uL Abs Immat Gran (auto) (0.00-0.03) X10*3/uL Absolute Neuts (auto) (2.0-8.3) x10*3/uL Absolute Nucleated RBC (0.0-0.012) X10*3/uL Nucleated RBC % (auto) (0.0-0.2) /100WBC PT (10.0-13.1) SEC INR (0.9-1.1) Sodium (135-145) mmol/L Potassium (3.3-5.1) mmol/L Chloride (96-108) mmol/L Carbon Dioxide (22-29) mmol/L Anion Gap (12-20) BUN (9-16) mg/dL Creatinine (0.5-1.4) mg/dL Estim Creat Clear Calc Estimated GFR Random Glucose (60-115) mg/dL Calcium (8.4-10.2) mg/dL Magnesium (1.6-2.6) mg/dL Total Bilirubin (0.0-1.0) mg/dL Direct Bilirubin (0.0-0.5) mg/dL AST (5-31) U/L ALT (0-31) U/L Alkaline Phosphatase (39-117) U/L Troponin I High Sens < 3.5 (<3.5-17.0) ng/L Total Protein (6.5-8.0) g/dL Albumin (3.5-5.0) g/dL Urine Color Dark Yellow Urine Appearance Cloudy Urine pH 5.5 (5.0-9.0) Ur Specific [place] 1.025 (1.005-1.025) Urine Protein 30 (1+) H (Neg-Trace) mg/dL Urine Glucose (UA) Negative (Negative) mg/dL Urine Ketones Trace (Negative) mg/dL Urine Blood Trace H (Negative) Urine Nitrite Negative (Negative) Ur Leukocyte Esterase Moderate (2+) H (Negative) Urine RBC 3-5 H (0-2) /HPF Urine WBC 21-50 H (0-5) /HPF Ur Squamous Epith Cells >20 (0-2) /HPF Urine Bacteria 1+ (None Seen) Hyaline Casts 0-2 (0-2) /LPF COVID-19 (CAROLYN) Negative (Negative) COVID-19 Clin Com See Note 10/16/22 Range/Units 14:29 WBC (4.8-10.8) X10*3/uL RBC (4.20-5.50) X10*6/uL Hgb (12.0-16.0) g/dl Hct (37.0-47.0) % MCV (80.0-98.0) fL MCH (27.0-33.0) pg MCHC (31.0-35.0) g/dl RDW (11.0-16.0) % Plt Count (160-400) X10*3/uL MPV (9.4-12.3) fL Immature Gran % (Auto) (0.0-0.4) % Neut % (Auto) (45-73) % Lymph % (Auto) (20-40) % [place] % (Auto) (2-11) % Eos % (Auto) (0-4) % Baso % (Auto) (0-2) % Lymph # (Auto) (1.2-4.9) X10*3/uL [place] # (Auto) (0.1-1.2) X10*3/uL Eos # (Auto) (0.0-0.4) X10*3/uL Baso # (Auto) (0.0-0.2) X10*3/uL Abs Immat Gran (auto) (0.00-0.03) X10*3/uL Absolute Neuts (auto) (2.0-8.3) x10*3/uL Absolute Nucleated RBC (0.0-0.012) X10*3/uL Nucleated RBC % (auto) (0.0-0.2) /100WBC PT (10.0-13.1) SEC INR (0.9-1.1) Sodium (135-145) mmol/L Potassium (3.3-5.1) mmol/L Chloride (96-108) mmol/L Carbon Dioxide (22-29) mmol/L Anion Gap (12-20) BUN (9-16) mg/dL Creatinine (0.5-1.4) mg/dL Estim Creat Clear Calc Estimated GFR Random Glucose (60-115) mg/dL Calcium (8.4-10.2) mg/dL Magnesium (1.6-2.6) mg/dL Total Bilirubin (0.0-1.0) mg/dL Direct Bilirubin (0.0-0.5) mg/dL AST (5-31) U/L ALT (0-31) U/L Alkaline Phosphatase (39-117) U/L Troponin I High Sens (<3.5-17.0) ng/L Total Protein (6.5-8.0) g/dL Albumin (3.5-5.0) g/dL Urine Color Yellow Urine Appearance Clear Urine pH 5.5 (5.0-9.0) Ur Specific [place] 1.015 (1.005-1.025) Urine Protein Negative (Neg-Trace) mg/dL Urine Glucose (UA) Negative (Negative) mg/dL Urine Ketones Negative (Negative) mg/dL Urine Blood Negative (Negative) Urine Nitrite Negative (Negative) Ur Leukocyte Esterase Trace H (Negative) Urine RBC 0-2 (0-2) /HPF Urine WBC 0-5 (0-5) /HPF Ur Squamous Epith Cells 0-2 (0-2) /HPF Urine Bacteria None Seen (None Seen) Hyaline Casts 0-2 (0-2) /LPF COVID-19 (CAROLYN) (Negative) COVID-19 Clin Com Independent Interpretation I performed an independent interpretation of an: EKG Interpretation: Normal sinus rhythm with a rate of 61, normal DE, normal QRS, normal QT Radiology Impression Discussion of test interpretation with radiology: I have reviewed the radiologist's reading. Radiologist Impression: I reviewed the radiologist reading and independently interpret the x-ray as normal FINDINGS: No significant abnormality is noted involving the heart, lungs, mediastinum, bony thorax or soft tissues. No significant change since 10/14/2022. XR/XR chest 2V IMPRESSION: Unremarkable examination. Independent Historian Clinical information obtained from an independent historian. History obtained from or confirmed by: Spouse Discharge Plan Discharge Clinical Impression: Syncope Patient Disposition: Admitted As Inpatient
--- NOTE | 2022-10-16 12:19 | ECG_ITS ---
Test Reason : Syncope Blood Pressure : / mmHG Vent. Rate : 061 BPM Atrial Rate : 061 BPM P-R Int : 178 ms QRS Dur : 102 ms QT Int : 434 ms P-R-T Axes : 080 045 069 degrees QTc Int : 436 ms Normal sinus rhythm Normal ECG When compared with ECG of 14-OCT-2022 21:15, No significant change was found Referred By: Natacha Merchant Electronically Signed By:Jonny Dasilva
[2022-10-16 13:20] LABS: MANUAL DIFF FLAG NO
[2022-10-16 13:22] LABS: Appearance Urine Cloudy; Color Urine Dark Yellow; Glucose Urine UA Negative (Negative); Leukocyte Esterase Urine Moderate (2+) (Negative); Nitrite Urine Negative (Negative); PH 5.5 (5.0-9.0); Specific Gravity - Urine 1.025 (1.005-1.025); UMIC TRIGGER UACC YES; Urine Blood Trace (Negative); Urine Ketones Trace mg/dL (Negative); Urine Protein 30 (1+) mg/dL (Neg-Trace)
[2022-10-16 13:24] LABS: Bacteria Urine 1+ (None Seen); Hyaline Casts Urine 0-2 /LPF (0-2); Squamous Epithelial Cell Urine >20 /HPF (0-2); UACC Culture Trigger YES; WBC Urine 21-50 /HPF (0-5)
[2022-10-16 13:25] LABS: Basophils Percent Auto 0.2 % (0-2); Eosinophils Percent Auto 0.4 % (0-4); Hematocrit 37.3 % (37.0-47.0); Hemoglobin 12.2 g/dl (12.0-16.0); Imm Gran Abs Auto 0.02 X10*3/uL (0.00-0.03); Imm Gran Pct Auto 0.4 % (0.0-0.4); Lymphocytes Absolute Auto 0.6 X10*3/uL (1.2-4.9); Mean Corpuscular HGB Conc 32.7 g/dl (31.0-35.0); Mean Corpuscular Hemoglobin 31.7 pg (27.0-33.0); Mean Corpuscular Volume 96.9 fL (80.0-98.0); Mean Platelet Volume 11.4 fL (9.4-12.3); Monocytes Absolute Auto 0.5 X10*3/uL (0.1-1.2); Monocytes Percent Auto 10.3 % (2-11); Neutrophils Absolute Auto 3.7 x10*3/uL (2.0-8.3); Neutrophils Percent Auto 75.7 % (45-73); Platelet Count 221 X10*3/uL (160-400); Red Blood Count 3.85 X10*6/uL (4.20-5.50); White Blood Count 4.9 X10*3/uL (4.8-10.8)
[2022-10-16 13:30] LABS: Prothrombin Time 11.9 SEC (10.0-13.1)
[2022-10-16 13:41] LABS: Alanine Aminotransferase 22 U/L (0-31); Albumin Level 4.1 g/dL (3.5-5.0); Alkaline Phosphatase 52 U/L (39-117); Anion Gap 11 (12-20); Aspartate Amino Transferase 31 U/L (5-31); Bilirubin Direct < 0.2 mg/dL (0.0-0.5); Bilirubin Total 0.3 mg/dL (0.0-1.0); Blood Urea Nitrogen 16 mg/dL (9-16); Calcium 9.1 mg/dL (8.4-10.2); Carbon Dioxide 29 mmol/L (22-29); Chloride 102 mmol/L (96-108); Creatinine Clr Calc Pharmacy 60.6; Estimated Glomerular Filt Rate > 60; Glucose Random 142 mg/dL (60-115); Magnesium 1.8 mg/dL (1.6-2.6); Potassium 4.3 mmol/L (3.3-5.1); Sodium 138 mmol/L (135-145); Total Protein 6.7 g/dL (6.5-8.0)
[2022-10-16 13:55] LABS: Troponin-I High Sensitivity < 3.5 ng/L (<3.5-17.0)
[2022-10-16 14:37] LABS: Appearance Urine Clear; Color Urine Yellow; Glucose Urine UA Negative (Negative); Leukocyte Esterase Urine Trace (Negative); Nitrite Urine Negative (Negative); PH 5.5 (5.0-9.0); Specific Gravity - Urine 1.015 (1.005-1.025); UMIC TRIGGER UACC YES; Urine Blood Negative (Negative); Urine Ketones Negative (Negative); Urine Protein Negative (Neg-Trace)
[2022-10-16 14:40] LABS: Bacteria Urine None Seen (None Seen); Hyaline Casts Urine 0-2 /LPF (0-2); RBC Urine 0-2 /HPF (0-2); Squamous Epithelial Cell Urine 0-2 /HPF (0-2); WBC Urine 0-5 /HPF (0-5)
[2022-10-16 14:50] LABS: COVID-19 Test Negative (Negative); IDNOW Serial# BCCEAD1C
--- NOTE | 2022-10-16 15:40 | PM.IMHP ---
History of Present Illness Date of Service: 10/16/22 Attending physician on admission: Chang Schilling Chief Complaint: dizziness 72-year-old female with history of GERD and mild intermittent asthma presented to the ED early this morning for evaluation of dizziness. She was seen in the ED 2 days ago following a syncopal event that occurred at home earlier that day. She developed flu-like symptoms 2 days prior with fevers, sore throat, nasal congestion, cough, and loose stool. That morning had been sitting on a kitchen stool when she BN feeling unwell and syncopized with loss of consciousness for about 1 minute per her . She does not recall the event itself but states there was no other prodrome including lightheadedness, palpitations, shortness of breath, chest pain. She was evaluated in the ED with head CT negative for any acute intracranial abnormality or fracture. CT of the facial bones negative for fracture and CT of the cervical spine negative for any fracture or subluxation. She did test positive for influenza at that time. She did sustain lacerations to the left upper lip and left brow with 5 sutures placed in each location and was discharged home. She states he has been tolerating fluids and had been feeling somewhat better yesterday. However woke this morning and developed lightheadedness, nausea, sweats, with 1 episode of vomiting. There is no recurrent syncopal episode but she did return to the ED for further evaluation. In the ED today, she has been afebrile, no tachycardia, hypotension, hypoxia. Orthostatic vital signs were negative. Chest x-ray without any acute findings. Hematology studies and chemistries unremarkable. Negative for COVID-19. Urinalysis unremarkable. She denies any history of arrhythmia. She reports she drinks 2 glasses of wine daily and has never gone through withdrawal. Denies any cigarette smoking and reports occasional marijuana use. Patient to be observed overnight for presyncope/syncope associated with influenza. Review of Systems Review of Systems: General: No fevers, malaise, unintentional weight loss HEENT: +nasal congestion, +sore throat. No blurred vision, diplopia. No rhinorrhea, sinus pain, ear pain Cardiovascular: No chest pain, palpitations, or leg edema Respiratory: +cough. No shortness of breath, wheezing GI: No abdominal pain, nausea, vomiting, diarrhea : No dysuria, hematuria, increased urinary frequency, decreased urinary output MSK: +myalgia. No back pain Neuro: No headaches, weakness, paresthesias Skin: No rashes or lesions [facility] Medical History (Updated 10/16/22 @ 15:51 by TERRI Bean) GERD (gastroesophageal reflux disease) Mild intermittent asthma Family History (Updated 10/16/22 @ 15:50 by TERRI Bean) Mother Alzheimer disease Sister Alzheimer disease Father Atherosclerosis Social History (Updated 10/16/22 @ 15:50 by TERRI Bean) Alcohol intake: current Alcohol intake frequency: 0-2 drinks per day Smoked in Last 30 Days: No Use of substances other than those prescribed or required for medical reasons: No Advance Directives: No Meds Allergies Allergy/AdvReac Type Severity Reaction Status Date / Time doxycycline Allergy Intermediate Dizziness Verified 10/14/22 20:45 Active Medications: Current Medications Pharmacy Consult (Consult Rx Perform Med Rec) 1 each MISCELLANE ONCE PRN PRN Reason: Consult order Home Medications Medication Instructions Recorded Confirmed Last Taken Type albuterol sulfate 90 mcg/actuation 2 puff inhalation Q6H 10/16/22 10/16/22 Unknown History aerosol inhaler estradiol 0.01% (0.1 mg/gram) 1 g vaginal 2XW 10/16/22 10/16/22 Unknown History vaginal cream montelukast 10 mg tablet 1 tab PO DAILY 10/16/22 10/16/22 Unknown History omeprazole 20 mg capsule,delayed 1 cap PO DAILY 10/16/22 10/16/22 Unknown History release Physical Exam Vital Signs and Narrative: Vital Signs: Last Vital Signs Temp 97.9 F 10/16/22 11:22 Pulse 74 10/16/22 12:51 Resp 16 10/16/22 12:46 BP 142/84 H 10/16/22 12:51 Pulse Ox 97 10/16/22 12:46 O2 Del Method 10/16/22 12:46 BMI result Body Mass Index 20.1 Constitutional - Awake and Alert, No apparent distress Eyes - PERRLA, EOMI Cardiovascular - S1S2, RRR, No edema Respiratory - Normal lung expansion, Normal respiratory effort, No respiratory distress, CTA bilaterally Gastrointestinal - NT / ND; +BS; No rebound or guarding Extremities - no calf tenderness bilaterally, no swelling Skin - Warm/Dry Neurological - Alert & oriented x3, CN II-XII in tact, 5/5 strength BUE and BLE Psychological - Appropriate affect Results Labs CBC and Chem 7: 10/16/22 13:04 10/16/22 13:04 Labs: Laboratory Results - last 24 hr 10/16/22 10/16/22 10/16/22 13:04 13:04 13:04 MCV 96.9 MCH 31.7 MCHC 32.7 RDW 13.0 Plt Count 221 MPV 11.4 Immature Gran % (Auto) 0.4 Neut % (Auto) 75.7 H Lymph % (Auto) 13.0 L [place] % (Auto) 10.3 Eos % (Auto) 0.4 Baso % (Auto) 0.2 Lymph # (Auto) 0.6 L [place] # (Auto) 0.5 Eos # (Auto) 0.0 Baso # (Auto) 0.0 Abs Immat Gran (auto) 0.02 Absolute Neuts (auto) 3.7 Absolute Nucleated RBC 0.000 Nucleated RBC % (auto) 0.0 PT 11.9 INR 1.0 Anion Gap 11 L Estim Creat Clear Calc 60.6 Estimated GFR > 60 Random Glucose 142 H Calcium 9.1 Magnesium 1.8 Total Bilirubin 0.3 Direct Bilirubin < 0.2 AST 31 ALT 22 Alkaline Phosphatase 52 Troponin I High Sens Total Protein 6.7 Albumin 4.1 Urine Color Urine Appearance Urine pH Ur Specific [place] Urine Protein Urine Glucose (UA) Urine Ketones Urine Blood Urine Nitrite Ur Leukocyte Esterase Urine RBC Urine WBC Ur Squamous Epith Cells Urine Bacteria Hyaline Casts COVID-19 (CAROLYN) COVID-19 Clin Com 10/16/22 10/16/22 10/16/22 13:04 13:14 14:26 MCV MCH MCHC RDW Plt Count MPV Immature Gran % (Auto) Neut % (Auto) Lymph % (Auto) [place] % (Auto) Eos % (Auto) Baso % (Auto) Lymph # (Auto) [place] # (Auto) Eos # (Auto) Baso # (Auto) Abs Immat Gran (auto) Absolute Neuts (auto) Absolute Nucleated RBC Nucleated RBC % (auto) PT INR Anion Gap Estim Creat Clear Calc Estimated GFR Random Glucose Calcium Magnesium Total Bilirubin Direct Bilirubin AST ALT Alkaline Phosphatase Troponin I High Sens < 3.5 Total Protein Albumin Urine Color Dark Yellow Urine Appearance Cloudy Urine pH 5.5 Ur Specific [place] 1.025 Urine Protein 30 (1+) H Urine Glucose (UA) Negative Urine Ketones Trace Urine Blood Trace H Urine Nitrite Negative Ur Leukocyte Esterase Moderate (2+) H Urine RBC 3-5 H Urine WBC 21-50 H Ur Squamous Epith Cells >20 Urine Bacteria 1+ Hyaline Casts 0-2 COVID-19 (CAROLYN) Negative COVID-19 Clin Com See Note 10/16/22 14:29 MCV MCH MCHC RDW Plt Count MPV Immature Gran % (Auto) Neut % (Auto) Lymph % (Auto) [place] % (Auto) Eos % (Auto) Baso % (Auto) Lymph # (Auto) [place] # (Auto) Eos # (Auto) Baso # (Auto) Abs Immat Gran (auto) Absolute Neuts (auto) Absolute Nucleated RBC Nucleated RBC % (auto) PT INR Anion Gap Estim Creat Clear Calc Estimated GFR Random Glucose Calcium Magnesium Total Bilirubin Direct Bilirubin AST ALT Alkaline Phosphatase Troponin I High Sens Total Protein Albumin Urine Color Yellow Urine Appearance Clear Urine pH 5.5 Ur Specific [place] 1.015 Urine Protein Negative Urine Glucose (UA) Negative Urine Ketones Negative Urine Blood Negative Urine Nitrite Negative Ur Leukocyte Esterase Trace H Urine RBC 0-2 Urine WBC 0-5 Ur Squamous Epith Cells 0-2 Urine Bacteria None Seen Hyaline Casts 0-2 COVID-19 (CAROLYN) COVID-19 Clin Com Imaging Radiologist's Impressions: Impressions Chest X-Ray 10/16/22 12:26 IMPRESSION: Unremarkable examination. Assessment and Plan (1) Influenza A: Status: Acute (2) Pre-syncope: Status: Acute Plan 72-year-old female with history of GERD and mild intermittent asthma to be observed for presyncope/syncope related to influenza A #Presyncope -Episode syncope 2 days ago without recurrence. Head CT, facial bones CT, cervical spine CT at that time without acute findings -Continues with intermittent lightheadedness associated with nausea, vomiting, sweats, currently asymptomatic -most likely related to influenza A. No other evidence of infection -CXR and UA are unremarkable -encourage p.o. fluids -continues cardiac monitoring to evaluate for any arrhythmia # influenza a -outside of window for Tamiflu -symptomatic management # GERD -continue PPI # mild intermittent asthma-without acute exacerbation -albuterol p.r.n. Full code DVT prophylaxis-mechanical/ambulation Time Spent With Patient Time: Total time managing care of this patient today ____ minutes. Quality Stroke Does the patient have a stroke diagnosis?: No VTE Prior VTE?: No VTE Risk Level:: Medical - moderate - high VTE Device Contraindication: N/A - Device Ordered VTE Drug Contraindication: Treatment Not Indicated
--- NOTE | 2022-10-16 15:57 | PHA.MEDREC ---
Pharmacy Consult ? Medication Reconciliation Pharmacy has completed the medication reconciliation. Spoke with pt. She does not regularly take her estradiol cream on any two particular days of the week.
--- NOTE | 2022-10-16 20:08 | PC.NURSE ---
Assumed care of patient. Patient resting quietly while on phone with family. No apparent distress.
--- NOTE | 2022-10-16 21:48 | PC.NURSE ---
IV access est L forearm 20g
--- NOTE | 2022-10-16 21:58 | PC.NURSE ---
Patient coughing and requesting cough suppressant. Per DEC PRN robitussin administered.
[2022-10-17 00:56] VITALS: BMI 20.5
[2022-10-17 00:59] VITALS: BP 176/87; PULSE 69; RESP 18; TEMP 36; O2SAT 98
--- NOTE | 2022-10-17 02:48 | PC.NURSE ---
Pt arrived from the Ed at 0048, pt alert and oriented, denies any pain nor SOB, seen pt ambulated independently with steady gait, denies any lightheadedness nor dizziness, noted with occasional non prod cough, pt requested for sleep med, Dr. Levy was notified, Trazodone 50 mg po given, safety measures instructed.
[2022-10-17 04:00] VITALS: BP 138/80; PULSE 62; RESP 18; TEMP 36.4; O2SAT 98
[2022-10-17 08:00] VITALS: BP 144/87; PULSE 75; RESP 18; TEMP 36.2; O2SAT 96
--- NOTE | 2022-10-17 09:48 | PM.DS ---
DS: Providers Provider Date of Service: 10/17/22 Date of admission: 10/16/22 15:33 Date of discharge: 10/17/22 Primary care physician: Lexi Cruz CNP Admitting clinician: Natali Yanez Attending physician on admission: Chang Schilling Attending physician on discharge: Brie Osullivan Discharging clinician: Natali Yanez DS: Diagnosis Discharge Diagnosis (1) Influenza A: Status: Acute (2) Pre-syncope: Status: Acute DS: Summary Hospital Course Hospital Course: HPI on admission 10/16/22: 72-year-old female with history of GERD and mild intermittent asthma presented to the ED early this morning for evaluation of dizziness.? She was seen in the ED 2 days ago following a syncopal event that occurred at home earlier that day.? She developed flu-like symptoms 2 days prior with fevers, sore throat, nasal congestion, cough, and loose stool.? That morning had been sitting on a kitchen stool when she BN feeling unwell and syncopized with loss of consciousness for about 1 minute per her .? She does not recall the event itself but states there was no other prodrome including lightheadedness, palpitations, shortness of breath, chest pain.? She was evaluated in the ED with head CT negative for any acute intracranial abnormality or fracture.? CT of the facial bones negative for fracture and CT of the cervical spine negative for any fracture or subluxation.? She did test positive for influenza at that time.? She did sustain lacerations to the left upper lip and left brow with 5 sutures placed in each location and was discharged home.? She states he has been tolerating fluids and had been feeling somewhat better yesterday.? However woke this morning and developed lightheadedness, nausea, sweats, with 1 episode of vomiting.? There is no recurrent syncopal episode but she did return to the ED for further evaluation.? In the ED today, she has been afebrile, no tachycardia, hypotension, hypoxia.? Orthostatic vital signs were negative.? Chest x-ray without any acute findings.? Hematology studies and chemistries unremarkable.? Negative for COVID-19.? Urinalysis unremarkable.? She denies any history of arrhythmia.? She reports she drinks 2 glasses of wine daily and has never gone through withdrawal.? Denies any cigarette smoking and reports occasional marijuana use.? Patient to be observed overnight for presyncope/syncope associated with influenza. Hospital Course: Hospital course uneventful. Pt observed overnight following syncopal episode monday with head injury and faical laceration with lightheadedness that recurred yesterday morning. She is positive for influenza A. Head CT, cervical spine CT, and facial bones CT negative for acute abnormality including fracture. She did have 5 sutures placed to left brow and left upper lip monday, which are noted to be intact without wound dehiscence. CXR negative for pneumonia. She was observed on telemetry without any arrhythmia noted that could have contributed to presyncope/syncope. Orthostatic vital signs unremarkable. Hematology and chemistry studies unremarkable. No recurrence presyncope/syncope noted. She is ambulating without difficulty. Discussed that influenza is most probable etiology for symptoms and she should continue with rest and adequate fluid intake. She is also discharged with tessalon perles and guaifenesin prn for cough. Advised to follow up [facility] PCP. Advised that unless symptoms persist following resolution of flu, no further studies should be indicated, but this is at the discretion of her PCP. Status at Discharge Functional status at discharge: independent ambulation Overall status at discharge: patient is back to baseline Time Spent with Patient Time attestation: Total time managing care of this patient today ____ minutes. Discharge coordination time: Greater than 30 minutes Quality: Safe Use of Opioids Does Pt have an Active Cancer Diagnosis on the Problem List?: No Quality: Stroke Does the patient have a stroke diagnosis?: No Physical Exam Vital Signs: Vital Signs: Last Vital Signs Temp 97.1 F 10/17/22 08:00 Pulse 75 10/17/22 08:00 Resp 18 10/17/22 08:00 BP 144/87 H 10/17/22 08:00 Pulse Ox 96 10/17/22 08:00 O2 Del Method 10/17/22 08:00 BMI result Body Mass Index 20.5 Constitutional - Awake and Alert, No apparent distress Eyes - PERRLA, EOMI Cardiovascular - S1S2, RRR, No edema Respiratory - Normal lung expansion, Normal respiratory effort, No respiratory distress, CTA bilaterally Gastrointestinal - NT / ND; +BS; No rebound or guarding Extremities - no calf tenderness bilaterally, no swelling Skin - Warm/Dry Neurological - Alert & oriented x3 Psychological - Appropriate affect DS: Data Data Completed and Pending Labs on day of discharge: Laboratory Results - last 24 hr 10/16/22 10/16/22 10/16/22 13:04 13:04 13:04 WBC 4.9 RBC 3.85 L Hgb 12.2 Hct 37.3 MCV 96.9 MCH 31.7 MCHC 32.7 RDW 13.0 Plt Count 221 MPV 11.4 Immature Gran % (Auto) 0.4 Neut % (Auto) 75.7 H Lymph % (Auto) 13.[address] [place] % (Auto) 10.3 Eos % (Auto) 0.4 Baso % (Auto) 0.2 Lymph # (Auto) 0.[address] [place] # (Auto) 0.5 Eos # (Auto) 0.0 Baso # (Auto) 0.0 Abs Immat Gran (auto) 0.02 Absolute Neuts (auto) 3.7 Absolute Nucleated RBC 0.000 Nucleated RBC % (auto) 0.0 PT 11.9 INR 1.0 Sodium 138 Potassium 4.3 Chloride 102 Carbon Dioxide 29 Anion Gap 11 L BUN 16 Creatinine 0.75 Estim Creat Clear Calc 60.6 Estimated GFR > 60 Random Glucose 142 H Calcium 9.1 Magnesium 1.8 Total Bilirubin 0.3 Direct Bilirubin < 0.2 AST 31 ALT 22 Alkaline Phosphatase 52 Troponin I High Sens Total Protein 6.7 Albumin 4.1 Urine Color Urine Appearance Urine pH Ur Specific [place] Urine Protein Urine Glucose (UA) Urine Ketones Urine Blood Urine Nitrite Ur Leukocyte Esterase Urine RBC Urine WBC Ur Squamous Epith Cells Urine Bacteria Hyaline Casts COVID-19 (CAROLYN) COVID-19 Clin Com 10/16/22 10/16/22 10/16/22 13:04 13:14 14:26 WBC RBC Hgb Hct MCV MCH MCHC RDW Plt Count MPV Immature Gran % (Auto) Neut % (Auto) Lymph % (Auto) [place] % (Auto) Eos % (Auto) Baso % (Auto) Lymph # (Auto) [place] # (Auto) Eos # (Auto) Baso # (Auto) Abs Immat Gran (auto) Absolute Neuts (auto) Absolute Nucleated RBC Nucleated RBC % (auto) PT INR Sodium Potassium Chloride Carbon Dioxide Anion Gap BUN Creatinine Estim Creat Clear Calc Estimated GFR Random Glucose Calcium Magnesium Total Bilirubin Direct Bilirubin AST ALT Alkaline Phosphatase Troponin I High Sens < 3.5 Total Protein Albumin Urine Color Dark Yellow Urine Appearance Cloudy Urine pH 5.5 Ur Specific [place] 1.025 Urine Protein 30 (1+) H Urine Glucose (UA) Negative Urine Ketones Trace Urine Blood Trace H Urine Nitrite Negative Ur Leukocyte Esterase Moderate (2+) H Urine RBC 3-5 H Urine WBC 21-50 H Ur Squamous Epith Cells >20 Urine Bacteria 1+ Hyaline Casts 0-2 COVID-19 (CAROLYN) Negative COVID-19 Clin Com See Note 10/16/22 14:29 WBC RBC Hgb Hct MCV MCH MCHC RDW Plt Count MPV Immature Gran % (Auto) Neut % (Auto) Lymph % (Auto) [place] % (Auto) Eos % (Auto) Baso % (Auto) Lymph # (Auto) [place] # (Auto) Eos # (Auto) Baso # (Auto) Abs Immat Gran (auto) Absolute Neuts (auto) Absolute Nucleated RBC Nucleated RBC % (auto) PT INR Sodium Potassium Chloride Carbon Dioxide Anion Gap BUN Creatinine Estim Creat Clear Calc Estimated GFR Random Glucose Calcium Magnesium Total Bilirubin Direct Bilirubin AST ALT Alkaline Phosphatase Troponin I High Sens Total Protein Albumin Urine Color Yellow Urine Appearance Clear Urine pH 5.5 Ur Specific [place] 1.015 Urine Protein Negative Urine Glucose (UA) Negative Urine Ketones Negative Urine Blood Negative Urine Nitrite Negative Ur Leukocyte Esterase Trace H Urine RBC 0-2 Urine WBC 0-5 Ur Squamous Epith Cells 0-2 Urine Bacteria None Seen Hyaline Casts 0-2 COVID-19 (CAROLYN) COVID-19 Clin Com Discharge Plan Discharge Anticipated Discharge Date/Time: 10/17/22 09:39 Patient Disposition: Home, Self-Care Discharge Diagnosis: Presyncope, Influenza A Referrals: Lexi Cruz CNP [Primary Care Provider] - 1 Week Discharge Medications: New guaifenesin 200 mg/5 mL liquid 400 mg PO Q4H PRN (Reason: cough) Qty: 118 0RF benzonatate 100 mg capsule 100 mg PO TID PRN (Reason: cough) Qty: 14 0RF Continued omeprazole 20 mg capsule,delayed release(DR/EC) 1 cap PO DAILY montelukast 10 mg tablet 1 tab PO DAILY estradiol 0.01 % (0.1 mg/gram) cream 1 g vaginal 2XW albuterol sulfate 90 mcg/actuation HFA aerosol inhaler 2 puff INHALATION Q6H Discontinued codeine-guaifenesin 10-100 mg/5 mL liquid 10 ml PO Q6H PRN (Reason: cough) Qty: 237 0RF Discharge Orders: Discharge Order (Routine); Ordered 10/17/22 Ordered By: Natali Yanez Diet: Advance to usual diet Activity on Discharge: As tolerated Stand Alone Forms: Patient Portal Discharge page Care Plan Goals: Follow up with PCP. Drink plenty of fluids and rest for management of influenza and prevention of dizziness. Health Concerns: Influenza with lightheadedness Prior syncopal episode with head injury Facial lacerations Plan of Treatment: You were monitored in the hospital overnight to monitor for any cardiac arrhythmia that could be related to your presyncope/syncopal episode monday. There were no arrhythmias noted. Your head CT, facial bones CT, and cervical spine CT were negative for any acute abnormality related to these events. You did test positive for influenza A which is likely the cause of the lightheadedness episodes. All other labs and vital signs were unremarkable. Be sure to drink plenty of fluids, rest, and take cough medicine as needed and as prescribed. At this time, it is not felt that any additional testing is warranted as the episodes were most likely related to the influenza. However, should they continue to recur, please return for further evaluation and you should see your PCP either way for follow up. You should have the sutures on the face removed 5-7 days after placement at an urgent care, your PCP office, or you can return to the ED. Assessment: As above
--- NOTE | 2022-10-17 09:55 | MHC.CM.PN ---
PATIENT LIVES WITH HCP/SPOUSE SHE IS DC TODAY AND SPOUSE IS IN ROOM TO TRANSPORT. REQUEST FOR HCP TO BE BROUGHT IN IF PATIENT IS TO HAVE TO VISIT AGAIN INDEPENDENT WITH ALL ADLS VAX AND BOOSTED AGAINST COVID-19 IMM 10/17 SIGNED AND COPY IN CHART
== END 2022-10-17 10:19 | disposition home or self-care (01) ==
LOC: HO.ED 14:13 → HO.EDOVER 15:44 → HO.S3 22:35
PROVIDERS: Nurse Practitioner Family; Admitting Provider Physician Assistant; Emergency Provider Student in an Organized Health Care Education/Training Program; PCP Nurse Practitioner Primary Care; Visit Provider Physician Assistant
DX: J10.1 Influenza due to other identified influenza virus with other respiratory manifestations (principal); R55 Syncope and collapse; Z20.822 Contact with and (suspected) exposure to COVID-19; Z79.899 Other long term (current) drug therapy
CPT/HCPCS: 36415; 71046; 80048; 80076; 81001; 83735; 84484; 85025; 85610; 87086; 87147; 87635; 93005; 96374; 99218; 99285

== ENCOUNTER 2022-10-25 13:37 | Emergency (ER) | payer MEDICARE, OTHER, SELFPAY | END 2022-10-25 14:41 | disposition left against medical advice (07) | PROVIDERS: Emergency Provider Emergency Medicine; PCP Nurse Practitioner Primary Care | DX: Z48.02 Encounter for removal of sutures (principal) ==

== ENCOUNTER 2022-10-26 07:43 | Emergency (ER) | payer MEDICARE, OTHER, SELFPAY ==
[2022-10-26 07:45] VITALS: BP 151/75; PULSE 78; RESP 18; TEMP 37.1; O2SAT 97
--- NOTE | 2022-10-26 08:53 | ED_ITS ---
HPI - Skin/Abscess/Foreign Bdy General Chief complaint: Skin/Abscess/Foreign Body Stated complaint: Suture removal Time Seen by Provider: 10/26/22 08:06 Source: patient Mode of arrival: ambulatory Limitations: no limitations History of Present Illness HPI narrative: Patient here for suture removal from her face which were placed 12 days ago. Patient with no complaints. Patient reports unable to have them removed sooner as she was recovering from the flu and was feeling unwell. Related Data Home Medications Medication Instructions Recorded Confirmed albuterol sulfate 90 mcg/actuation 2 puff inhalation Q6H 10/16/22 10/16/22 aerosol inhaler estradiol 0.01% (0.1 mg/gram) 1 g vaginal 2XW 10/16/22 10/16/22 vaginal cream montelukast 10 mg tablet 1 tab PO DAILY 10/16/22 10/16/22 omeprazole 20 mg capsule,delayed 1 cap PO DAILY 10/16/22 10/16/22 release Previous Rx's Medication Instructions Recorded benzonatate 100 mg capsule 100 mg PO TID PRN cough #14 caps 10/17/22 guaifenesin 200 mg/5 mL oral liquid 400 mg (10 mL) PO Q4H PRN cough 10/17/22 #118 mL Allergies Allergy/AdvReac Type Severity Reaction Status Date / Time doxycycline Allergy Intermediate Dizziness Verified 10/14/22 20:45 Review of Systems Review of Systems: Yes all other systems are reviewed and are negative Constitutional: Constitutional: Reports no additional constitutional complaints, Denies chills and Denies fever(s) Eyes: Eyes: Reports no additional eye complaints ENT: Reports system reviewed and no additional complaints, except as documented Cardiovascular: Cardiovascular: Reports no additional cardiovascular complaints Respiratory: Respiratory: Reports no additional respiratory complaints Gastrointestinal: Gastrointestinal: Reports no additional gastrointestinal complaints Genitourinary: Genitourinary: Reports no additional female genitourinary complaints Musculoskeletal: Musculoskeletal: Reports no additional musculoskeletal complaints Integumentary/Breasts: Skin/Breast: Reports system reviewed and no additional complaints, except as docu, Denies swelling and Denies erythema Neurologic: Reports system reviewed and no additional complaints, except as documented [facility] Past Medical History Attestation statement: The following information was validated with the patient. Source: old records reviewed and nursing notes reviewed Medical History GERD (gastroesophageal reflux disease) Mild intermittent asthma Family History Family History Mother Alzheimer disease Sister Alzheimer disease Father Atherosclerosis Social History Social History Household Members: Spouse Housing: House Do you presently have visiting nurse or other home services: No Alcohol intake: current Alcohol intake frequency: 0-2 drinks per day Patient Tobacco Use Status: Never used Tobacco Substance Use Type: Marijuana Advance Directives: No Advance Directives Information Provided: Yes service: No Current occupational status: retired Physical Exam Vital Signs: Vital Signs: Last Vital Signs Temp 98.7 F 10/26/22 07:45 Pulse 78 10/26/22 07:45 Resp 18 10/26/22 07:45 BP 151/75 H 10/26/22 07:45 Pulse Ox 97 10/26/22 07:45 O2 Del Method 10/26/22 07:45 BMI result Body Mass Index 20.0 Const: General: alert HEENT: Head: Yes normal to inspection Head images: 1. Sutures present 5. 2. Sutures present 5. Eyes: General: appearance normal, both eyes and all related structures Neck: Neck: Yes normal visual inspection Resp: Effort & Inspection: normal respiratory effort Neuro: General: moves all extremities Cognition (Neuro): normal cognition Gait exam (Neuro): Normal gait present Medical Decision Making Medical Decision Making MDM Narrative: 72-year-old female here for suture removal from her face with no complaints. See procedure note Procedures Procedure Narrative Procedure Narrative: 5 sutures removed from left eyebrow. Edges are approximated. No signs of r edness, warmth, drainage 5 sutures removed from left upper lip. Edges are approximated. No signs of redness, warmth or drainage Discharge Plan Discharge Clinical Impression: Visit for suture removal Patient Disposition: Home, Self-Care Instructions: Stitches Removal (ED) Additional Instructions: Apply vitamin E oil to the scars No straws for a few days Prescriptions: No Action omeprazole 20 mg capsule,delayed release(DR/EC) 1 cap PO DAILY montelukast 10 mg tablet 1 tab PO DAILY estradiol 0.01 % (0.1 mg/gram) cream 1 g vaginal 2XW albuterol sulfate 90 mcg/actuation HFA aerosol inhaler 2 puff INHALATION Q6H guaifenesin 200 mg/5 mL liquid 400 mg PO Q4H PRN (Reason: cough) Qty: 118 0RF benzonatate 100 mg capsule 100 mg PO TID PRN (Reason: cough) Qty: 14 0RF Interventions: ED Discharge Assessment Last Done: 10/26/22 09:10 Discharge Date/Time: 10/26/22 09:11
== END 2022-10-26 09:11 | disposition home or self-care (01) ==
PROVIDERS: Emergency Provider Emergency Medicine Emergency Medical Services; PCP Nurse Practitioner Primary Care
DX: Z48.02 Encounter for removal of sutures (principal); S01.81XD Laceration without foreign body of other part of head, subsequent encounter; X58.XXXD Exposure to other specified factors, subsequent encounter
CPT/HCPCS: 99282; 99283

== ENCOUNTER → 2023-07-14 08:45 | Outpatient (BNV) | payer MEDICARE, OTHER, SELFPAY | PROVIDERS: PCP Family Medicine; Visit Provider Radiology Diagnostic Radiology | DX: Z12.31 Encounter for screening mammogram for malignant neoplasm of breast (principal) | CPT/HCPCS: 77063; 77067 ==

== ENCOUNTER 2023-07-14 08:47 | Outpatient (REF) | payer MEDICARE, OTHER, SELFPAY | END 2023-07-14 08:48 | disposition home or self-care (01) | LOC: HO.MAMMO 08:47 | PROVIDERS: PCP Family Medicine; Visit Provider Family Medicine | DX: Z12.31 Encounter for screening mammogram for malignant neoplasm of breast (principal) | CPT/HCPCS: 77063; 77067 ==

== ENCOUNTER 2023-08-08 13:00 | Outpatient (RCR) | payer MEDICARE, OTHER, SELFPAY | END 2023-08-08 14:02 | disposition home or self-care (01) | LOC: HO.PT 13:00 | PROVIDERS: PCP Nurse Practitioner Primary Care; Visit Provider Nurse Practitioner Primary Care | DX: M25.511 Pain in right shoulder (principal); M25.512 Pain in left shoulder | CPT/HCPCS: 97110; 97140; 97162; 97530 ==

== ENCOUNTER 2024-08-15 10:39 | Outpatient (REF) | payer MEDICARE, OTHER, SELFPAY ==
--- NOTE | ~2024-08-15 | MM_ITS ---
EXAMINATION: BONE DENSITOMETRY CLINICAL INDICATION: Menopause. COMPARISON: Previous BD dated 03/25/2021 and baseline BD dated 11/02/2012. TECHNIQUE: Using a [employer] DXA System (software version: 13.1) manufactured by [employer], dual-energy x-ray absorptiometry was performed of the lumbar spine and left hip. The images are of good technical quality. Summary results are attached. FINDINGS: LEFT FEMUR, NECK: Current: BMD 0.733 g/cm2, Z-score -0.2, T-score -2.2, osteopenia. Prior: BMD 0.725 g/cm2. Baseline: BMD 0.779 g/cm2. LEFT FEMUR, TOTAL: Current: BMD 0.758 g/cm2, Z-score -0.2, T-score -2.0, osteopenia, 4.8% decrease from previous, 11.9% decrease from baseline (<5% change is not significant). Prior: BMD 0.796 g/cm2. Baseline: BMD 0.860 g/cm2. AP SPINE L1-L4: Current: BMD 1.265 g/cm2, Z-score 2.7, T-score 0.7, normal, 7.6% increase from previous, 5.8% increase from baseline (<5% change is not significant). Prior: BMD 1.176 g/cm2. Baseline: BMD 1.196 g/cm2. IDENTIFIED RISK FACTORS: Menopause, height loss, family history (parent hip fracture). HISTORY OF FRACTURE: None listed. MEDICATIONS: Multivitamin, vitamin D. MM/XR DEXA axial skeleton IMPRESSION: 1. DIAGNOSIS: Osteopenia based on the lowest T-score value of -2.2 in the femoral neck applying World Health Organization criteria. 2. 10-YEAR FRACTURE RISK PREDICTION, FRAX: Major osteoporotic fracture (clinical spine, forearm, hip or shoulder) 22.2%. Hip fracture 12.3%. 3. Treatment Recommendations: NOF guidelines recommend consideration for treatment in postmenopausal women and men age 50 and older presenting with the following: -A hip or vertebral (clinical or morphometric) fracture. -T-score less than or equal to -2.5 at the femoral neck or spine after appropriate evaluation to exclude secondary causes. -Low bone mass at the hip or spine and a 10-year fracture probability by FRAX of greater than or equal to 3% for hip fracture or greater than or equal to 20% for major osteoporotic fracture based on the [place] adapted WHO algorithm. 4. Other Recommendations: All treatment decisions require clinical judgment and consideration of individual patient factors, including patient preferences, comorbidities, previous drug use, risk factors not captured in the FRAX model (e.g. frailty, falls, vitamin D deficiency, increased bone turnover, interval significant decline in bone density) and possible under or overestimation of fracture risk by FRAX. Additional medical evaluation for secondary cause of low bone mineral density may be appropriate. FUTURE SCAN RECOMMENDATION: People with diagnosed cases of osteoporosis or at high risk for fracture should have regular bone mineral density tests. For patients eligible for Medicare, routine testing is allowed once every 2 years. The testing frequency can be increased to one year for patients who have rapidly progressing disease, those who are receiving or discontinuing medical therapy to restore bone mass, or have additional risk factors. Electronically signed by: Ning Granger MD 08/16/2024 03:18 PM EDT RP
--- NOTE | ~2024-08-15 | MM_ITS ---
EXAMINATION: MM SCREENING DIGITAL BREAST TOMOSYNTHESIS, BILATERAL CLINICAL INFORMATION: Screening. Asymptomatic. COMPARISON: Mammography: Comparison is made with available priors TECHNIQUE: Digital breast mammography with tomosynthesis is performed in both the craniocaudal and mediolateral oblique views along with computer-aided detection (CAD). FINDINGS: There are scattered areas of fibroglandular density (ACR BI-RADS breast composition Category b). There are no significant masses, abnormal calcifications, or other abnormalities. MM/MM tomosynthesis screening BI IMPRESSION: No mammographic evidence of malignancy. ASSESSMENT: BI-RADS BI-RADS 1 - Negative RECOMMENDATION: Routine annual mammography screening. 1 year F/U This examination should not preclude the clinical evaluation of a suspicious palpable abnormality. This patient's information was entered into a reminder system with a target due date for their next mammogram. Electronically signed by: Deirdre Kwok DO 08/24/2024 10:30 AM EDT
== END 2024-08-15 10:40 | disposition home or self-care (01) ==
LOC: HO.MAMMO 10:39
PROVIDERS: PCP Nurse Practitioner Primary Care; Visit Provider Nurse Practitioner Adult Health
DX: Z12.31 Encounter for screening mammogram for malignant neoplasm of breast (principal); Z13.820 Encounter for screening for osteoporosis; Z78.0 Asymptomatic menopausal state
CPT/HCPCS: 77063; 77067; 77080

== ENCOUNTER → 2024-08-15 10:45 | Outpatient (BNV) | payer MEDICARE, OTHER, SELFPAY | PROVIDERS: PCP Nurse Practitioner Primary Care; Visit Provider Internal Medicine | DX: Z12.31 Encounter for screening mammogram for malignant neoplasm of breast (principal) | CPT/HCPCS: 77063; 77067 ==

== ENCOUNTER 2025-09-25 14:01 | Outpatient (RCR) | payer MEDICARE, OTHER, SELFPAY | END 2025-10-22 11:42 | disposition home or self-care (01) | LOC: HO.PT 14:01 | PROVIDERS: PCP Nurse Practitioner Primary Care; Visit Provider Nurse Practitioner Primary Care | DX: M25.512 Pain in left shoulder (principal) | CPT/HCPCS: 97110; 97162; 97535 ==

== ENCOUNTER 2025-10-20 13:02 | Outpatient (REF) | payer MEDICARE, OTHER, SELFPAY ==
--- NOTE | ~2025-10-20 | MM_ITS ---
EXAMINATION: MM SCREENING DIGITAL BREAST TOMOSYNTHESIS, BILATERAL CLINICAL INFORMATION: Screening. Asymptomatic. COMPARISON: Mammography: Comparison is made with available priors TECHNIQUE: Digital breast mammography with tomosynthesis is performed in both the craniocaudal and mediolateral oblique views along with computer-aided detection (CAD). FINDINGS: There are scattered areas of fibroglandular density. There are no significant masses, abnormal calcifications, or other abnormalities. MM/MM tomosynthesis screening BI IMPRESSION: No mammographic evidence of malignancy. ASSESSMENT: BI-RADS Category 1: Negative RECOMMENDATION: Routine annual mammography screening. 1 year F/U This examination should not preclude the clinical evaluation of a suspicious palpable abnormality. This patient's information was entered into a reminder system with a target due date for their next mammogram. Electronically signed by: Deirdre Kwok DO 10/22/2025 12:40 PM BRUNO
--- OUTSIDE RECORDS SUMMARY | 2025-10-20 14:58 | XMS_ITS | Patient Health Record ---
Author Organization [facility] Address [address] [place] [address] Care Team Providers Care Auto Dealer Name Role Phone Noy ELIZALDE, Gabriel Primary Care Provider Unavail able Bakari Calero Jr Unavailable [phone] Allergies Allergen (clinical drug ingredient) Drug/Non Drug Allergy documented on EMR Reaction Allergy Type Onset Date Status doxycycline Doxycycline Unknown Drug Allergy Act kashif Reason For Referral No Information Medications Medication SIG (Take, Route, Frequency, Duration) Notes Start Date End Date Status Flonase Allergy Relief 50 MCG/ACT Suspension 1 spray in each nostril Nasally Once a day/prn Active Multi Vitamin/Minerals - Tablet 1 Orally QD Active Estrace 0.1 MG/GM Cream 1 tablet Vaginal twice a week 03/08/2017 Active Colyte with Flavor Packs 240 GM Solution Reconstituted As directed Orally Over the specified time.; Duration: 1 day(s) Active Immunizations Vaccine Route Administration Date Status Comme nts Flu vaccine no Preserv 3 and > Unknown 09/27/2016 Admin istered Social History Tobacco Use: Social History Observation Description Date Details (start date - stop date) Never Smoker NA - NA Social History Drugs/Alcohol: Social Info Question Answer Notes Alcohol Screen Did you have a drink containing alcohol in the past year? Yes How often did you have a drink containing alcohol in the past year? 4 or more times a week (4 points) How many drinks did you have on a typical day when you were drinking in the past year? 1 or 2 drinks (0 point) How often did you have 6 or more drinks on one occasion in the past year? Never (0 point) Points 4 Interpretation Positive Tobacco Use: Social Info Question Answer Notes Tobacco Use/Smoking Patient is a nonsmoker Additional Details Category Social Info Options Details Miscellaneous: Marital status: Occupation: retired Plan Of Treatment Future Test Test Name Order Date COLONOSCOPY 03/08/2017 Insurance Providers Payer Name Payer Address Payer Phone Subscriber Number Group Number Insured Name Patient Relationship to Insured Coverage Start Date Coverage End Date MEDICARE OF [place] [address] [place] [address] [id number] JOHN ZUÑIGA Self - patient is the insured [facility] [address] [place] [address] [id number] JOHN ZUÑIGA Self - patient is the insured Medical (General) History Medical History History ICD Code colonoscopy 11-03-2004 history of iron def anemia Denies [place],DM,CVA,Lung disease,renal dise ase Surgical History Surgery Date(Month/Year) tonsillectomy frozen shoulder status post arthroscopy plantar wart removal
== END 2025-10-20 13:03 | disposition home or self-care (01) ==
LOC: HO.MAMMO 13:02
PROVIDERS: Absent Provider Nurse Practitioner Adult Health; PCP Nurse Practitioner Primary Care; Visit Provider Nurse Practitioner Primary Care
DX: Z12.31 Encounter for screening mammogram for malignant neoplasm of breast (principal)
CPT/HCPCS: 77063; 77067

== ENCOUNTER → 2025-10-20 13:15 | Outpatient (BNV) | payer MEDICARE, OTHER, SELFPAY | PROVIDERS: Absent Provider Nurse Practitioner Adult Health; PCP Nurse Practitioner Primary Care; Visit Provider Internal Medicine | DX: Z12.31 Encounter for screening mammogram for malignant neoplasm of breast (principal) | CPT/HCPCS: 77063; 77067 ==